=== PATIENT | male | born 1985 | race Caucasian/White ===

== ENCOUNTER → 2018-07-17 12:56 | Outpatient (CLI) | payer OTHER, SELFPAY | PROVIDERS: Visit Provider Physician Assistant | DX: M25.561 Pain in right knee (principal) | CPT/HCPCS: 73564 ==

== ENCOUNTER → 2018-07-31 16:59 | Outpatient (CLI) | payer OTHER, SELFPAY | PROVIDERS: Visit Provider Physician Assistant | DX: S83.241A Other tear of medial meniscus, current injury, right knee, initial encounter (principal); X58.XXXA Exposure to other specified factors, initial encounter; Y93.9 Activity, unspecified; Y92.9 Unspecified place or not applicable; Y99.9 Unspecified external cause status | CPT/HCPCS: 73721 ==

== ENCOUNTER 2018-08-27 08:44 | Day surgery (SDC) | payer OTHER, SELFPAY ==
[2018-08-27] VITALS (7 sets, daily range): BP systolic 103–124; BP diastolic 56–83; PULSE 59–76; RESP 12–18; TEMP 36.3–36.7; O2SAT 93–98; BMI 33.1
--- NOTE | 2018-08-27 11:15 | DCINST_ITS ---
Discharge Diet: No Restrictions - ttwb right leg with brace locked in extension and extension at night, april rom 0-30 right knee, follow up on saturday for dressing change and brace adjustment with vivian, keep incision clean and dry Discharge Activity: May Not Drive May shower in (days): 1 Ice area for (Minutes): 20 - Every hour while awake. Weight Bearing Status: Weight bearing as tolerated Keep extremity elevated above heart level: Operative Extremity Call your doctor if your incision/area has: Continuous Slow Oozing, Sudden Increased Bleeding, Increased Pain/ Swelling, Increased Redness, Foul Smelling Discharge Call your doctor if you observe: Fever of 101 or Higher, Coldness, Increased Pain, Numbness or Tingling, Change in Color, Calf discomfort Allergies/Adverse Reactions: Allergies No Known Allergies Allergy (Verified 08/20/18 08:14) Medications to take at Discharge Hydrocodone Bitart/Apap 5-325 [[place] 5MG-325MG] 1 - 2 tablet PO Q6H PRN PRN 5 Days #40 tablet 08/27/18 The following prescriptions were given: Hydrocodone Bitart/Apap 5-325 [[place] 5MG-325MG] 1 - 2 tablet PO Q6H PRN PRN 5 Days #40 tablet PRN Reason: Pain Primary Care Physician: Care Physician,No Primary [Primary Care Provider] - Test Results: Test results from this visit will be discussed in further detail at your follow- up appointment, if applicable. Please Follow Up With: Marylu Patel, DO - [phone]
--- NOTE | 2018-08-27 11:15 | PCM.OPRPT ---
Report of Operation Date of Procedure: 08/27/18 Pre-Operative Diagnosis: right knee medial meniscus tear Post-Operative Diagnosis: same Surgery/Procedure Performed:: right knee partial medial meniscectomy and medial meniscus repair with 4 reverse curved Fast Fix 360 devices Type of Anesthesia:: General Anesthesiologist: Jordan Dixon Estimated Blood Loss (mL): none Fluids Replaced: 1000ml lr Description of Procedure: Preoperative note Patient is a 33-year-old male with right knee pain. Seen by my physician's warehouse assistant in the clinic continued pain despite conservative treatment MRI confirmed a medial meniscus tear clinical evaluation confirms a medial meniscus tear as well. Patient failed conservative treatment like to proceed with right knee arthroscopy. Risks benefits and alternatives surgery discussed with patient. Risks including but not limited to blood loss, blood clot, infection, neurovascular injury, failure procedure, loss of life and loss of limb. Patient is aware like proceed with right knee arthroscopy repair is indicated. Operative note Patient seen and examined preoperative holding area. Right knee was marked. Patient brought to the operating room placed supine on the operating table. Sign, anesthesia, antibiotics were administered. Right knee is prepped and draped in usual sterile fashion with tourniquet around his upper thigh as well and SCDs placed on his contralateral limb and all bony possible padded. Timeout was performed. We marked out our incision for anterior lateral anterior medial portal placements. The right knee was elevated exsanguinated and tourniquet was raised her pressure of 250 torr. We created her anterior lateral portal with an 11 blade. Begin our diagnostic arthroscopy. The patellofemoral joint was intact we went down to the medial joint line created our anterior medial portal under direct visualization. We then were able to probe the unstable radial tear of the mid body of the medial meniscus. The ACL and PCL were present within the notch the lateral tibial plateau lateral femoral condyle lateral lateral meniscus were intact and stable to probing. We then moved back to the medial joint line. The tear actually was a radial tear with the most like a parrot-beak that was at the capsule so we trimmed back to the radial tear and chamfered off the meniscus both prior anterior and posterior to the tear took for 2: 8 the the meniscus there is no rough edges. We then placed for reverse curved 360 FasT-Fix devices sutures 2 from the one-sided tear to the other side of the tear and then 2 from the tear itself to the capsule to further prevent further propagation of the tear. The knee was irrigated comes in states copious amounts sterile saline we put the probe back into the need to stay to check the stability of the meniscus which it was quite stable we then performed a microfracture within the notch to provide blood flow and improve healing of the meniscus repair. Again the knee was irrigated Sterile Saline the Tourniquet Was Deflated for Total Working Time of 32 Minutes Portals Were Closed Sterile Dressings Were Applied and a Brace Locked in Extension Was Applied with Ability to Range from 0-30 While Seated. Patient Tolerated Procedure Well There Are No Complications Transferred to Recovery Room in Stable Condition. Postoperative Note Toe-Touch Weightbearing Right Leg Next 0-30 While Seated Locked in Extension during Ambulation and at Night Follow-Up in on Saturday to See [place]en for Dressing Change and Brace Adjustment Call with Increased Pain Numbness Tingling or Further Issues Arise Next Patient Was Given to [facility] Has Prescription Next Dragon Disclaimer This note was generated with [employer] dictation software. It may contain incorrect words, spelling, and punctuation that were not noted in checking the note before signing.
[2018-08-27] MEDS: Cefazolin 2 GM in 0.9% Normal Saline 100 ML IV (11:29)
[2018-08-27] MEDS: Mupirocin Ointment 22gm Tube 1 APPLIC (12:01)
[2018-08-27] MEDS: HYDROcodone Bitartrate/Apap 5/325 Tablet PO (14:20)
== END 2018-08-27 15:09 | disposition home or self-care (01) ==
LOC: SDC 08:46 → AC 08:47
PROVIDERS: Visit Provider Orthopaedic Surgery
PROC: (CPT 29870; principal; 2018-08-27 09:45)
DX: S83.241A Other tear of medial meniscus, current injury, right knee, initial encounter (principal); X58.XXXA Exposure to other specified factors, initial encounter; Y93.9 Activity, unspecified; Y92.9 Unspecified place or not applicable; Y99.9 Unspecified external cause status
CPT/HCPCS: 29882; J7120; J2405